=== PATIENT | female | born 1950 | race Caucasian/White ===

== ENCOUNTER 2016-10-13 12:54 | Emergency (ER) | payer MEDICARE, OTHER ==
--- NOTE | ~2016-10-13 | EKG ---
PATIENT: SUN DAVENPORT UNIT #: [id number] Ventricular Rate: 63 BPM Atrial Rate: 63 BPM P-R Interval: 166 ms QRS Duration: 68 ms Q-T Interval: 394 ms QTC Calculation(Bezet): 403 ms P [place]: 78 degrees Calculated R [place]: 77 degrees Calculated T [place]: 74 degrees Diagnosis Line: Normal sinus rhythm Diagnosis Line: Normal ECG Diagnosis Line: No previous ECGs available Diagnosis Line: Confirmed by HÉCTOR MIDDLETON MD ([id number]) on Diagnosis Line: 10/13/2016 3:51:38 PM INTERPRETING MD: KANE TIAN
[~2016-10-13 12:54] MED LIST: ACETAMINOPHEN PO; ACETAMINOPHEN PR; ATIVAN0.5 MG PO; CALCIUM 500 + D1 TAB PO; CALCIUM 500 +1 EAC2 PO; FEMORA; FOSAMAX PO; KEFLEX PO; LETROZOLE2.5 M1 PO; LETROZOLE2.5 MG PO; NEXIUM PO; PERCOCET7.5 PO; PROLIA60 MG/1 ML SQ; SEROQUEL50 M1 PO; VICODIN 5/1 TAB 5/50 PO; VITAMIN D
[2016-10-13 13:42] LABS: BASOPHIL% 0.4 % (0-2.5); EOSINOPHIL% 0.6 % (0.0-7.0); HEMATOCRIT 38.4 % (35.0-45.0); HEMOGLOBIN 12.7 gm/dL (12.0-16.0); LYMPHOCYTE# 2.1 X10e3 (1.0-3.5); LYMPHOCYTE% 29.1 % (17.0-45.0); MEAN CELL VOLUME 93.8 FL (83-96); MEAN PLATELET VOLUME 7.8 FL (6.5-11.5); MONOCYTE# 0.4 X10e3 (0-1.0); MONOCYTE% 6.3 % (3.0-12.0); NEUTROPHIL# 4.5 X10e3 (1.5-7.1); NEUTROPHIL% 63.6 % (40-75); PLATELET COUNT 296 X10e3 (140-420); RED BLOOD COUNT 4.09 X10e (3.90-5.30); RED CELL DISTRIBUTION WIDTH 13.9 % (11.0-15.5); WHITE BLOOD COUNT 7.1 X10e3 (4.0-10.5)
[2016-10-13 13:45] LABS: DIFF IND NO
[2016-10-13 13:58] LABS: ALBUMIN SERUM 3.7 g/dL (3.5-5.0); BILIRUBIN, DIRECT 0.1 mg/dL (0.0-0.2); BILIRUBIN,INDIRECT 0.3 mg/dL (0.0-0.9); BILIRUBIN,TOTAL 0.4 mg/dL (0.2-2.0); BUN/CREATININE RATIO 24.28; CALCIUM SERUM 9.9 mg/dL (8.4-10.2); CREATININE SERUM 0.7 mg/dL (0.6-1.4); GLOM FILT RATE Estimated 90.9 mL/min (>60); POTASSIUM 3.7 mmol/L (3.5-5.1); PROTEIN TOTAL SERUM 7.7 g/dL (6.0-8.3)
[2016-10-13 14:41] LABS: URINE SOURCE CLEAN CATCH
[2016-10-13 14:48] LABS: URINE APPEARANCE CLEAR; URINE BILIRUBIN NEG (NEG); URINE BLOOD 1+ (NEG); URINE COLOR YELLOW; URINE GLUCOSE NEG (NEG); URINE KETONE NEG (NEG); URINE LEUKOCYTE ESTERASE 1+ (NEG); URINE NITRATE NEG (NEG); URINE PH 6.5 (5-8); URINE PROTEIN NEG (NEG); URINE UROBILINOGEN 0.2 MG/DL (NEG)
[2016-10-13 14:53] LABS: CULTURE INDICATED? YES; URBCS1 AUWI 0-2 /[HPF] (0-2); URINE BACTERIA AUWI NEG (NEGATIVE); URINE SQUAMOUS EPITHELIAL CELL OCC /[HPF]
[2016-10-13 15:03] LABS: POC - CKMB <1.0 ng/mL (0.0-7.9); POC - TROPONIN <0.05 ng/mL (<=0.05)
[2016-10-13 15:22] LABS: POC - CKMB <1.0 ng/mL (0.0-7.9); POC - TROPONIN <0.05 ng/mL (<=0.05)
[2016-12-03] MEDS ORDERED: RISPERDAL M-TAB1 MG PO (14:58)
[2016-12-04] MEDS ORDERED: PRILOSEC PO (07:42)
[2017-01-12] MEDS ORDERED: NO MEDICATIONS (15:16)
[2017-01-19] MEDS ORDERED: VICODIN 5-3001 EACH PO (10:12)
[2017-01-19] MEDS ORDERED: NITROFURANTOIN100 M3 PO (10:12)
[2017-01-19] MEDS ORDERED: RISPERIDONE1 MG PO (10:13)
[2017-01-19] MEDS ORDERED: BENTYL10 MG PO (10:35)
== END 2016-10-13 16:18 | disposition home or self-care (01) ==
LOC: CED 12:54
DX: R53.1 Weakness (principal); R53.83 Other fatigue; F17.200 Nicotine dependence, unspecified, uncomplicated
CPT/HCPCS: 36415; 80048; 80076; 81003; 82553; 84484; 85025; 87086; 93005; 99283

== ENCOUNTER → 2016-10-30 | Outpatient (CLI) | payer MEDICARE, OTHER ==
[~2016-10-30] MED LIST changes: +BENTYL10 MG PO; +NICOTINE1 EAC2 TOP; +NITROFURANTOIN100 M3 PO; +NO MEDICATIONS; +NON-ASPIRIN PA325 M1 PO; +PRILOSEC PO; +PROTONIX PO; +RISPERDAL M-TAB1 MG PO; +RISPERIDONE1 MG PO; +VICODIN 5-3001 EACH PO
--- NOTE | ~2016-10-30 | CT7 ---
[facility] A Service of [facility] RADIOLOGY TEXT RESULTS PATIENT: SUN DAVENPORT LOCATION: [facility] : 51 UNIT #: [id number] AGE: [address]: RENU SCHULZ APRN SEX: F ORDER DR: [id number] [facility] [address] [place], [place] [address] [id number] O MR#: [id number] Acc #: [id number] NAME: SUN DAVENPORT. : 1950 SEX: F STUDY DATE/TIME: 10/30/2016 12:57 UNIT: [facility] ROOM: STUDY DESCRIPTION: CT Abdomen Wo Cont Attending Physician: Renu Schulz Aprn Referring Physician: Renu Schulz Aprn Ordering Physician: Renu cShulz Aprn Primary Care Physician: Marya Villanueva M.D. MEDICAL IMAGING REPORT This report is preliminary unless electronic signature is present EXAM CT of the abdomen without contrast media HISTORY Epigastric and mid abdominal pain, nausea for 1 week. TECHNIQUE Axial imaging of the abdomen was performed without contrast media. This CT exam was performed with one or more of the following radiation dose reduction techniques: Automatic exposure control, adjustment of mA and/or kV according to patient size, and iterative reconstruction. FINDINGS Lung bases are unremarkable. The patient has had an external left breast prosthesis in place. Scans through the liver parenchyma are normal. Gallbladder is normal. Spleen, adrenal glands, and pancreas appear normal. There is a radiopaque tablet within the gastric fundus. The right and left kidney have a normal appearance. No dilated or thickened loops of bowel are seen. There is atherosclerotic calcifications present. Upper aspect of the pelvis appears unremarkable. CONCLUSION There are postop changes of prior left mastectomy. CT of the abdomen is, otherwise, normal. Dictated by... David Hinojosa M.D. THIS IS AN ELECTRONICALLY VERIFIED REPORT David Hinojosa M.D. at 11/02/2016 5:11 PM SADE/aniket [facility] A Service of [facility] RADIOLOGY TEXT RESULTS PATIENT: SUN DAVENPORT LOCATION: [place] : 51 UNIT #: [id number] AGE: [address]: RENU SCHULZ APRN SEX: F ORDER DR: TD: 10/30/2016 16:24 JOB #: [id number] MEDICAL IMAGING REPORT Page 1 of 1 COPY
== END | disposition home or self-care (01) ==
LOC: CCAT 12:30
DX: R10.13 Epigastric pain (principal); R63.4 Abnormal weight loss; R63.1 Polydipsia; Z90.12 Acquired absence of left breast and nipple
CPT/HCPCS: 74150

== ENCOUNTER 2016-11-02 14:15 | Observation (INO) | payer MEDICARE, OTHER ==
--- NOTE | ~2016-11-02 | US67 ---
[facility] A Service of [facility] & [facility] RADIOLOGY TEXT RESULTS PATIENT: SUN DAVENPORT LOCATION: [facility] 340-01 : 51 UNIT #: [id number] AGE: [address]: Genny Lr MD SEX: F ORDER DR: [id number] [facility] [address] [place], [place] [address] [id number] I MR#: [id number] Acc #: [id number] NAME: SUN DAVENPORT. : 1950 SEX: F STUDY DATE/TIME: 11/02/2016 17:45 UNIT: [address] ROOM: [facility] STUDY DESCRIPTION: US Gallbladder Attending Physician: Genny Lr M.D. Ordering Physician: Jimy Gonzales D.O. Primary Care Physician: Marta Banegas A.P.R.N. MEDICAL IMAGING REPORT This report is preliminary unless electronic signature is present EXAM Gallbladder sonogram HISTORY 66-year-old female with abdominal pain, epigastric and mid abdominal pain for [address], 10/30/2016 FINDINGS Real-time examination demonstrates the gallbladder to be free of stones or wall thickening. No intra or extrahepatic ductal dilatation is identified. Common bile duct measures 6.5 mm, upper limits of normal. The visualized right kidney, liver appear normal. Visualized pancreas unremarkable. No free fluid. IMPRESSION Normal gallbladder and right upper quadrant sonogram. Dictated by... Larry Kidd M.D. THIS IS AN ELECTRONICALLY VERIFIED REPORT Larry Kidd M.D. at 11/03/2016 3:09 PM ANGIE/aba TD: 11/03/2016 08:34 JOB #: [id number] MEDICAL IMAGING REPORT Page 1 of 1 COPY
--- NOTE | ~2016-11-02 | EKG ---
PATIENT: SUN DAVENPORT UNIT #: [id number] Ventricular Rate: 65 BPM Atrial Rate: 65 BPM P-R Interval: 148 ms QRS Duration: 68 ms Q-T Interval: 392 ms QTC Calculation(Bezet): 407 ms P [place]: 66 degrees Calculated R [place]: 55 degrees Calculated T [place]: 57 degrees Diagnosis Line: Normal sinus rhythm Diagnosis Line: Normal ECG Diagnosis Line: When compared with ECG of 13-OCT-2016 13:20, Diagnosis Line: No significant change was found Diagnosis Line: Confirmed by PRIMITIVO PALOMO MD ([id number]) on Diagnosis Line: 11/02/2016 10:23:18 PM INTERPRETING MD: LORETO
--- NOTE | ~2016-11-02 | A ---
[facility] DATE: 11/03/16 Patient: SUN DAVENPORT Physician: [email or web address] [address] Room/Bed: [address] [place] [address], Zip: [place] [address] Admit Date: 11/02/16 Date of : 52 Height: 5 2 Weight: 101 46 NUTRITIONAL ASSESSMENT: REASON: Low BMI Dx: 66 y/o female admitted for UTI, gastritis PMH: Breast cancer, smoker Anthropometrics: ht: 5'2" wt: 101# (46 kg), BMI 18 Labs: Lip 17 Meds: rocephin, protonix IV, nicotine transdermal, zofran, tylenol, lovenox I/O & Bowel function: 240/200. Last BM 11/02 Skin Integrity: scar- left breast Diet: Healthy heart Assessment: Chart reviewed, events noted. 66 y/o female admitted for UTI, gastritis. RD audit intern spoke to pt at bedside. Pt reports having a 1# weight loss over the last 3 days. Pt says she has a fine appetite, eating about 75% of her breakfast this morning, but she feels very nauseous after eating and has an upset stomach. RD audit intern offered to order supplements and pt agreed. RD audit intern encouraged adequate intake of meals and supplements to prevent unintentional weight loss. RD will continue to follow. Dx: Underweight r/t nausea and upset stomach AEB pt report, low BMI Intervention: 1. Ensure supplements BID + magic cup with dinner Monitoring, Evaluation and Goals: 1. Oral intake; tolerate/consume >50% of all meals and supplements 2. Weight; prevent unintentional weight loss, promote healthy weight gain/maintenance toward healthy BMI (19.0-25.0) 3. GI; promote regular GI function Recommendations: 1. Ensure strawberry BID + Magic Cup with dinner. 2. Encourage adequate PO intake as tolerated. [facility] DATE: 11/03/16 Patient: SUN DAVENPORT Physician: [email or web address] Address: [address] Room/Bed: [address] [place] [address], Zip: [place] [address] Admit Date: 11/02/16 Date of : [birth year] Height: 5 2 Weight: 101 46 3. Recommend GI consult. RD will f/u per protocol as pt is at mild/moderate nutritional risk. Respectfully, MIKE PATTON, international representative Gerri Arellano, DREW, LD [facility] cc: client file
--- NOTE | ~2016-11-02 | CR72 ---
[facility] A Service of [facility] & [facility] RADIOLOGY TEXT RESULTS PATIENT: SUN DAVENPORT LOCATION: [facility] 340-01 : 51 UNIT #: [id number] AGE: [address]: Genny Lr MD SEX: F ORDER DR: [id number] [facility] [address] [place], [place] [address] [id number] I MR#: [id number] Acc #: [id number] NAME: SUN DAVENPORT. : 1950 SEX: F STUDY DATE/TIME: 11/02/2016 17:18 UNIT: [address] ROOM: [facility] STUDY DESCRIPTION: CR Chest Single View Portable Attending Physician: Genny Lr M.D. Ordering Physician: Jimy Gonzales D.O. Primary Care Physician: Marta Banegas A.P.R.N. MEDICAL IMAGING REPORT This report is preliminary unless electronic signature is present EXAM Portable chest HISTORY Shortness of air, weakness, palpitations x1 month. COMPARISON 08/06/2016 FINDINGS Portable view of the chest demonstrates pulmonary hyperinflation and hyperlucency suggesting underlying emphysema. No acute airspace disease or consolidation. No effusions. Heart and mediastinum unremarkable except for minimal aortic atherosclerotic changes. Multiple old left-sided rib fractures appear well healed. The patient is status post left mastectomy with multiple surgical clips in the left axilla. Overall, no acute findings. Dictated by... Larry Kidd M.D. THIS IS AN ELECTRONICALLY VERIFIED REPORT Larry Kidd M.D. at 11/03/2016 3:09 PM ANGIE/aniket TD: 11/03/2016 08:26 JOB #: [id number] MEDICAL IMAGING REPORT Page 1 of 1 COPY
--- NOTE | ~2016-11-02 | HP ---
Unit #: [id number] #: [id number] Patient: SUN DAVENPORT [id number] [address] [address] [id number] I MR#: [id number] NAME: SUN DAVENPORT. ROOM: 340 Age: 66 Sex: F Admission Date: 11/02/2016 : 1950 Attending Physician: Rachelle Treviño M.D. Primary Care Physician: Marta Banegas A.P.R.N. HISTORY AND PHYSICAL CHIEF COMPLAINT Abdominal pain. HISTORY OF PRESENT ILLNESS The patient is a 66-year-old female with a history of breast cancer, status post left breast mastectomy, who presented to the emergency room complaining of generalized weakness. The patient stated that she has been feeling sick for the last one month and was complaining of upper epigastric abdominal pain for the last few days. The patient had a CT of the abdomen and pelvis that showed postop changes of prior left mastectomy. CT of the abdomen was otherwise normal. The patient was also found to have a UTI with 2+ leukocyte esterase, 10-25 urine WBCs, and 1+ urine bacteria, and the patient is being admitted for the above reasons. Denies any fever, chills, or chest pain. Positive for nausea and vomiting. Denies any flank pain. PAST SURGICAL HISTORY 1. Right toe surgery. 2. Right hand surgery. 3. Left breast mastectomy back in 2007. HOME MEDICATIONS Unavailable. SOCIAL HISTORY She smokes a pack of cigarettes daily. Denies alcohol or any illicit drug abuse. FAMILY HISTORY Reviewed and none. REVIEW OF SYSTEMS A 14-point review of systems was performed and only pertinent positive findings are described above. The remaining are negative. PHYSICAL EXAMINATION GENERAL: Patient is lying in bed not in acute distress. VITAL SIGNS: Temperature 97.6, pulse 87, respiratory rate 16, blood pressure 133/91, and saturating 100% on room air. HEENT: Head atraumatic, normocephalic. Pupils equal, round, and reactive to light and accommodation. Extraocular movements are intact. NECK: Supple. LUNGS: Decreased air entry. EXTREMITIES: No cyanosis, no clubbing. Unit #: [id number] #: [id number] Patient: SUN DAVENPORT NEUROLOGIC: Alert, awake, and oriented. No gross focal motor deficit. DIAGNOSTIC STUDIES LABORATORY: Urinalysis shows 2+ leukocyte esterase, 10-25 urine WBCs, and 1+ urine bacteria. INR is 1. Sodium 137, potassium 4.4, chloride 103, bicarb 26, glucose 106, BUN 13, creatinine 0.4, AST 13, ALT 11, and alkaline phosphatase 68. Lipase 17. WBC 5.8, hemoglobin 13.5, hematocrit 41.2, and platelets 231,000. IMAGING: CT of the abdomen and pelvis shows postop changes of prior left mastectomy. CT of the abdomen is otherwise normal. CARDIOLOGY: EKG shows normal sinus rhythm at a rate of 65 beats per minute. ASSESSMENT 1. Urinary tract infection. 2. Gastritis (1) . 3. History of breast cancer, status post mastectomy. PLAN Admit the patient to observation. Patient will receive IV antibiotic with Rocephin. Follow up urine culture. Patient will be on Protonix IV 40 mg daily. Repeat the labs again, and further recommendations will follow. Dictated by Mark Velázquez TD: 11/02/2016 20:25 JOB #: [id number] HISTORY AND PHYSICAL Page 1 of 1 X RACHELLE TREVIÑO MD X HISTORY AND PHYSICAL
--- NOTE | ~2016-11-02 | DS ---
Unit #: [id number] #: [id number] Patient: SUN DAVENPORT [id number] [place] [address] [id number] I MR#: [id number] NAME: SUN DAVENPORT. ROOM: 340 Age: 66 Sex: F Admission Date: 11/02/2016 : 1950 Discharge Date: Attending Physician: Genny Lr M.D. Primary Care Physician: Ajay Edwards.P.R.N. DISCHARGE SUMMARY DISCHARGE DIAGNOSES 1. Abdominal pain, likely secondary to urinary tract infection and cystitis. 2. Gastritis with acid reflux. 3. History of breast cancer, status post mastectomy. CONSULTATION None. PROCEDURE None. DIAGNOSTIC STUDIES LABORATORY: BMP normal. WBC normal. Urinalysis shows bacteria 1+, WBC 10-25, leukocyte esterase 2+. IMAGING: Ultrasound of the abdomen: Gallbladder negative. Chest x-ray shows old left-sided fractures and emphysema. No new disease. CT of the abdomen and pelvis shows postoperative left mastectomy, otherwise normal. ALLERGIES None. DISCHARGE MEDICATIONS 1. Tylenol 650 q.6 p.r.n. pain. 2. Nicotine 21 mg transdermal daily over the counter. 3. Protonix 40 daily. 4. Nitrofurantoin 100 p.o. b.i.d. HOSPITALIZATION COURSE A 66 year old admitted because of abdominal pain. Abdominal pain likely from urinary tract infection and acute cystitis. Also, could be from acid reflux and gastritis. Patient was given Rocephin. Cultures are pending. I am going to give her nitrofurantoin. Follow with PCP for urinary tract infection and final culture reports. Acid reflux with likely gastritis: Protonix has been given. Follow with PCP in followup. DISPOSITION Discharge home. Unit #: [id number] #: [id number] Patient: SUN DAVENPORT FOLLOWUP Follow with family physician for UTI and gastritis. Dictated by... Mark Dai TD: 11/03/2016 13:24 JOB #: [id number] DISCHARGE SUMMARY Page 1 of 1 X Genny Lr MD DISCHARGE SUMMARY
[~2016-11-02 14:15] MED LIST changes: -BENTYL10 MG PO; -NICOTINE1 EAC2 TOP; -NITROFURANTOIN100 M3 PO; -NO MEDICATIONS; -NON-ASPIRIN PA325 M1 PO; -PRILOSEC PO; -PROTONIX PO; -RISPERDAL M-TAB1 MG PO; -RISPERIDONE1 MG PO; -VICODIN 5-3001 EACH PO
[2016-11-02 16:05] LABS: BASOPHIL% 0.6 % (0-2.5); EOSINOPHIL% 0.8 % (0.0-7.0); HEMATOCRIT 41.2 % (35.0-45.0); HEMOGLOBIN 13.5 gm/dL (12.0-16.0); LYMPHOCYTE# 1.9 X10e3 (1.0-3.5); LYMPHOCYTE% 33.3 % (17.0-45.0); MEAN CELL VOLUME 94.4 FL (83-96); MEAN CORPUSCULAR HGB CONC 32.8 g/dL (30-36); MONOCYTE# 0.5 X10e3 (0-1.0); MONOCYTE% 7.8 % (3.0-12.0); NEUTROPHIL# 3.4 X10e3 (1.5-7.1); NEUTROPHIL% 57.5 % (40-75); PLATELET COUNT 231 X10e3 (140-420); RED BLOOD COUNT 4.36 X10e (3.90-5.30); RED CELL DISTRIBUTION WIDTH 14.9 % (11.0-15.5); WHITE BLOOD COUNT 5.8 X10e3 (4.0-10.5)
[2016-11-02 16:12] LABS: DIFF IND NO
[2016-11-02 16:17] LABS: PARTIAL THROMBOPLASTIN TIME 23.8 SECONDS (23.5-31.3); PROTHROMBIN TIME (PATIENT) 11.3 SECONDS (10.0-11.7)
[2016-11-02 16:25] LABS: ALBUMIN SERUM 3.9 g/dL (3.5-5.0); ALKALINE PHOSPHATASE 68 U/L (32-92); ALT (SGPT) 11 U/L (10-40); AST (SGOT) 13 U/L (10-42); BILIRUBIN,TOTAL 0.2 mg/dL (0.2-2.0); BLOOD UREA NITROGEN 13 mg/dL (9-23); CALCIUM SERUM 9.6 mg/dL (8.4-10.2); CARBON DIOXIDE 26 mmol/L (22-31); CHLORIDE 103 mmol/L (100-111); CREATININE SERUM 0.4 mg/dL (0.6-1.4); GLOM FILT RATE Estimated 109.3 mL/min (>60); GLUCOSE FASTING 106 mg/dL (70-110); LIPASE 17 U/L (22-51); POTASSIUM 4.4 mmol/L (3.5-5.1); PROTEIN TOTAL SERUM 7.5 g/dL (6.0-8.3); SODIUM 137 mmol/L (135-145)
[2016-11-02 16:26] LABS: BILIRUBIN, DIRECT <0.1 mg/dL (0.0-0.2); BILIRUBIN,INDIRECT 0.1 mg/dL (0.0-0.9)
[2016-11-02 17:01] LABS: URINE SOURCE CLEAN CATCH
[2016-11-02 17:06] LABS: URINE APPEARANCE CLEAR; URINE BILIRUBIN NEG (NEG); URINE BLOOD 1+ (NEG); URINE COLOR YELLOW; URINE GLUCOSE NEG (NEG); URINE KETONE TRACE (NEG); URINE LEUKOCYTE ESTERASE 2+ (NEG); URINE NITRATE NEG (NEG); URINE PROTEIN NEG (NEG); URINE SPECIFIC GRAVITY 1.017 (1.003-1.035); URINE UROBILINOGEN 0.2 MG/DL (NEG)
[2016-11-02 17:08] LABS: CULTURE INDICATED? YES; URINE BACTERIA AUWI 1+ (NEGATIVE); URINE SQUAMOUS EPITHELIAL CELL OCC /[HPF]
[2016-11-02] MEDS ORDERED: NO MEDICATIONS (20:52)
[2016-11-03 05:38] LABS: BASOPHIL% 0.9 % (0-2.5); EOSINOPHIL# 0.1 X10e3 (0-0.7); EOSINOPHIL% 1.2 % (0.0-7.0); HEMATOCRIT 37.8 % (35.0-45.0); HEMOGLOBIN 12.5 gm/dL (12.0-16.0); LYMPHOCYTE# 2.1 X10e3 (1.0-3.5); LYMPHOCYTE% 38.5 % (17.0-45.0); MEAN CELL VOLUME 93.3 FL (83-96); MEAN CORPUSCULAR HEMOGLOBIN 30.9 PG (28-34); MEAN CORPUSCULAR HGB CONC 33.1 g/dL (30-36); MEAN PLATELET VOLUME 8.2 FL (6.5-11.5); MONOCYTE# 0.5 X10e3 (0-1.0); MONOCYTE% 9.5 % (3.0-12.0); NEUTROPHIL# 2.8 X10e3 (1.5-7.1); NEUTROPHIL% 49.9 % (40-75); PLATELET COUNT 206 X10e3 (140-420); RED BLOOD COUNT 4.05 X10e (3.90-5.30); RED CELL DISTRIBUTION WIDTH 15.2 % (11.0-15.5); WHITE BLOOD COUNT 5.6 X10e3 (4.0-10.5)
[2016-11-03 05:43] LABS: DIFF IND NO
[2016-11-03 06:57] LABS: BUN/CREATININE RATIO 18.33; CALCIUM SERUM 8.7 mg/dL (8.4-10.2); CREATININE SERUM 0.6 mg/dL (0.6-1.4); GLOM FILT RATE Estimated 95.7 mL/min (>60); POTASSIUM 3.9 mmol/L (3.5-5.1)
[2016-11-03] MEDS ORDERED: NON-ASPIRIN PA325 M1 PO (13:31)
[2016-11-03] MEDS ORDERED: PROTONIX PO (13:32)
[2016-11-03] MEDS ORDERED: NICOTINE1 EAC2 TOP (13:32)
[2016-11-03] MEDS ORDERED: NITROFURANTOIN100 M3 PO (13:33)
[2016-12-03] MEDS ORDERED: RISPERDAL M-TAB1 MG PO (14:58)
[2016-12-04] MEDS ORDERED: PRILOSEC PO (07:42)
[2017-01-12] MEDS ORDERED: NO MEDICATIONS (15:16)
[2017-01-19] MEDS ORDERED: NITROFURANTOIN100 M3 PO (10:12)
[2017-01-19] MEDS ORDERED: VICODIN 5-3001 EACH PO (10:12)
[2017-01-19] MEDS ORDERED: RISPERIDONE1 MG PO (10:13)
[2017-01-19] MEDS ORDERED: BENTYL10 MG PO (10:35)
== END 2016-11-03 14:40 | disposition home or self-care (01) ==
LOC: CED 14:15 → CEDOF 18:35 → CED 19:10 → C3A PCU 20:01 → CEDOF 20:01 → C3A PCU 11-03 06:40
PROVIDERS: Internal Medicine; Student in an Organized Health Care Education/Training Program
DX: R10.9 Unspecified abdominal pain (principal); N39.0 Urinary tract infection, site not specified; K21.9 Gastro-esophageal reflux disease without esophagitis; Z85.3 Personal history of malignant neoplasm of breast; Z90.12 Acquired absence of left breast and nipple; F17.210 Nicotine dependence, cigarettes, uncomplicated; J43.9 Emphysema, unspecified
CPT/HCPCS: 36415; 71010; 76705; 80048; 80076; 81003; 83690; 85025; 85610; 85730; 87086; 93005; 96361; 96365; 96372; 96375; 96376; 99285; C9113; G0378; J0696; J1650; J2405

== ENCOUNTER 2016-11-19 18:08 | Emergency (ER) | payer MEDICARE, OTHER ==
[~2016-11-19 18:08] MED LIST changes: +NICOTINE1 EAC2 TOP; +NITROFURANTOIN100 M3 PO; +NO MEDICATIONS; +NON-ASPIRIN PA325 M1 PO; +PROTONIX PO
[2016-12-03] MEDS ORDERED: RISPERDAL M-TAB1 MG PO (14:58)
[2016-12-04] MEDS ORDERED: PRILOSEC PO (07:42)
[2017-01-12] MEDS ORDERED: NO MEDICATIONS (15:16)
[2017-01-19] MEDS ORDERED: VICODIN 5-3001 EACH PO (10:12)
[2017-01-19] MEDS ORDERED: NITROFURANTOIN100 M3 PO (10:12)
[2017-01-19] MEDS ORDERED: RISPERIDONE1 MG PO (10:13)
[2017-01-19] MEDS ORDERED: BENTYL10 MG PO (10:35)
== END 2016-11-19 19:55 | disposition left against medical advice (07) ==
LOC: CED 18:08
DX: Z53.21 Procedure and treatment not carried out due to patient leaving prior to being seen by health care provider (principal)

== ENCOUNTER → 2016-12-01 | Outpatient (CLI) | payer MEDICARE, OTHER ==
[~2016-12-01] MED LIST changes: +BENTYL10 MG PO; +PRILOSEC PO; +RISPERDAL M-TAB1 MG PO; +RISPERIDONE1 MG PO; +VICODIN 5-3001 EACH PO
--- NOTE | ~2016-12-01 | NM22 ---
[facility] A Service of [facility] & [facility] RADIOLOGY TEXT RESULTS PATIENT: SUN DAVENPORT LOCATION: [facility] : 51 UNIT #: [id number] AGE: [address]: SHAHRIAR RODRIGUEZ APRN SEX: F ORDER DR: [id number] [facility] [address] [place], [place] [address] [id number] O MR#: [id number] Acc #: [id number] NAME: SUN DAVENPORT. : 1950 SEX: F STUDY DATE/TIME: 12/01/2016 9:47 UNIT: [facility] ROOM: STUDY DESCRIPTION: IRENA Hepatobiliary W GB Pharm Attending Physician: Shahriar Rodriguez Aprn Referring Physician: Shahriar Rodriguez Aprn Ordering Physician: Shahriar Rodriguez Aprn Primary Care Physician: Ajay Edwards.PLauraRNash MEDICAL IMAGING REPORT This report is preliminary unless electronic signature is present EXAM Hepatobiliary scan 12/01 INDICATIONS Epigastric abdominal pain with nausea and vomiting since October 01, 2016 but worsening. TECHNIQUE Imaging was obtained of the abdomen for 60 minutes after the IV administration of 4.5 mCi of Tc-99m Choletec. COMPARISON STUDIES Comparison is made with gallbladder ultrasound from 11/02/2016. FINDINGS There is prompt uptake by the liver. Biliary and small bowel activity are seen within 30 minutes. Gallbladder activity confirmed within 45 minutes. There is no evidence of acute cholecystitis or biliary obstruction. Following the IV administration of 0.9 mcg of Kinevac, gallbladder ejection fraction is abnormally low at only 1.6%. This is a nonspecific finding that can be seen in the setting of chronic cholecystitis. Correlate clinically. IMPRESSION 1. No evidence of acute cholecystitis or biliary obstruction. 2. Abnormally low gallbladder ejection fraction of only 1.6%. Dictated by... Jamie Barlow Jr., M.D. THIS IS AN ELECTRONICALLY VERIFIED REPORT Jamie Barlow Jr., M.D. at 12/02/2016 8:29 AM [facility] A Service of [facility] & [facility] RADIOLOGY TEXT RESULTS PATIENT: SUN DAVENPORT LOCATION: [facility] #: [id number] : 52 UNIT #: [id number] AGE: [address]: SHAHRIAR RODRIGUEZ APRN SEX: F ORDER DR: Randa TD: 12/01/2016 22:36 JOB #: [id number] MEDICAL IMAGING REPORT Page 1 of 1 COPY
== END | disposition home or self-care (01) ==
LOC: CNUC 09:05
DX: R10.13 Epigastric pain (principal); R11.2 Nausea with vomiting, unspecified; R94.5 Abnormal results of liver function studies
CPT/HCPCS: 78227; A9537; J2805

== ENCOUNTER → 2016-12-04 | Day surgery (SDC) | payer MEDICARE, OTHER ==
--- NOTE | ~2016-12-04 | OR ---
Unit #: [id number] #: [id number] Patient: SUN DAVENPORT [id number] [address] [place], [place] [address] [id number] O MR#: [id number] NAME: SUN DAVENPORT ROOM: Date of Procedure: 12/04/2016 Admission Date: 12/04/2016 Surgeon: Nathan Holland M.D. : 1950 Attending Physician: Nathan Holland M.D. Referring Physician: Nathan Holland M.D. Primary Care Physician: Generic Doctor Not In System OPERATIVE REPORT PREOPERATIVE DIAGNOSES The patient presents with a history of postprandial dyspepsia, early satiety, feeling of fullness in the upper abdomen after eating and symptoms suggestive of dysphagia. PROCEDURES PERFORMED Upper gastrointestinal endoscopy and biopsy. POSTOPERATIVE DIAGNOSES Completely normal examination up to third part of duodenum. A biopsy was obtained from the antrum for CLOtest. RECOMMENDATIONS The above examination was essentially normal. The patient will have an outpatient gastric emptying study in the next couple of weeks and thereafter will be followed up in the office. In the meantime, she is being started on empiric omeprazole 40 mg p.o. daily. SEDATION USED MAC. DESCRIPTION OF PROCEDURE Following detailed explanation of potential risks and complications of an upper endoscopy, namely perforation, bleeding, and complications related to the sedation, the patient was brought to GI lab and laid in the left lateral decubitus position. A lubricated tip of the Olympus video upper endoscope was passed through the bite block into the proximal esophagus under direct vision. The entire esophageal mucosa was examined and appeared normal. Z-line was nicely demarcated, there being no esophagitis or hiatus hernia. The scope was then advanced into the gastric cavity and the latter was insufflated. Mucosa of the fundus, body, and antrum examined and appeared unremarkable. Pylorus was intubated with visualization of the normal duodenal bulb and second and third part of the duodenum. Upon withdrawal and retroflexion, incisura, cardia, and greater curve were examined and no additional findings noted. A biopsy was obtained from the antrum for CLOtest. The scope was then withdrawn into the distal esophagus. The entire esophageal mucosa was examined all the way up to pharynx. No additional findings noted. The patient tolerated the procedure without any postprocedure complications. Dictated by... Unit #: [id number] #: [id number] Patient: SUN DAVENPORT TOÑO Mark Murdock TD: 12/04/2016 08:14 JOB #: [id number] OPERATIVE REPORT Page 1 of 1 X Nathan Holland MD PROCEDURE OPERATIVE NOTE
== END | disposition home or self-care (01) ==
LOC: COPS 06:09
DX: R10.13 Epigastric pain (principal); M81.0 Age-related osteoporosis without current pathological fracture; F17.210 Nicotine dependence, cigarettes, uncomplicated; Z85.3 Personal history of malignant neoplasm of breast; Z79.899 Other long term (current) drug therapy; Z90.12 Acquired absence of left breast and nipple; Z98.890 Other specified postprocedural states
CPT/HCPCS: 87077

== ENCOUNTER → 2016-12-23 | Outpatient (CLI) | payer MEDICARE, OTHER ==
--- NOTE | ~2016-12-23 | EKG ---
PATIENT: SUN DAVENPORT UNIT #: [id number] Ventricular Rate: 70 BPM Atrial Rate: 70 BPM P-R Interval: 126 ms QRS Duration: 66 ms Q-T Interval: 390 ms QTC Calculation(Bezet): 421 ms P [place]: 63 degrees Calculated R [place]: 64 degrees Calculated T [place]: 71 degrees Diagnosis Line: Normal sinus rhythm Diagnosis Line: Normal ECG Diagnosis Line: When compared with ECG of 02-NOV-2016 17:29, Diagnosis Line: No significant change was found Diagnosis Line: Confirmed by OANH BAEZ MD ([id number]) on 12/24/2016 Diagnosis Line: 7:07:14 PM INTERPRETING MD: SASHA TIAN
== END | disposition home or self-care (01) ==
LOC: CAMB 11:53
DX: Z01.810 Encounter for preprocedural cardiovascular examination (principal)
CPT/HCPCS: 93005

== ENCOUNTER → 2016-12-29 | Day surgery (SDC) | payer MEDICARE, OTHER ==
--- NOTE | ~2016-12-29 | OR ---
Unit #: [id number] #: [id number] Patient: SUN DAVENPORT [id number] [facility] [address] [place], [place] [address] [id number] O MR#: [id number] NAME: SUN DAVENPORT ROOM: Date of Procedure: 12/29/2016 Admission Date: 12/29/2016 Surgeon: Jamie Marrero M.D. : 1950 Attending Physician: Jamie Marrero M.D. Primary Care Physician: Generic Doctor Not In System OPERATIVE REPORT PREOPERATIVE DIAGNOSIS Chronic acalculous cholecystitis. POSTOPERATIVE DIAGNOSIS Chronic acalculous cholecystitis. PROCEDURE PERFORMED Laparoscopic cholecystectomy. ANESTHESIA General endotracheal anesthesia. ESTIMATED BLOOD LOSS 30 mL. INDICATIONS FOR PROCEDURE A 66-year-old female, who is having abdominal pain associated with nausea and vomiting. She underwent extensive evaluation to include CT scan, ultrasound, upper and lower endoscopy, and a HIDA scan. HIDA scan showed an ejection fraction of 1.6% with concordant symptoms. DESCRIPTION OF PROCEDURE The patient was admitted to [facility], positively identified, and transported to the operating room, and after induction of general endotracheal anesthesia, she was prepped and draped in usual sterile fashion. The patient is very short waisted and so midway below the umbilicus and the pubis. A 5 mm transverse incision made. A Veress needle was placed and pneumoperitoneum was created. A 5-mm trocar was placed and the laparoscope was introduced into peritoneal cavity. Under direct vision, the epigastric port was placed along the right lateral abdominal wall. There were multiple omental adhesions that had to be taken down by sharp and cautery dissection. This freed up the right lateral abdominal cavity, so that the lateral trocars could be placed. Gallbladder was then grasped and elevated. Adhesions were taken down by sharp and blunt dissection, identifying the infundibulum which was retracted laterally. [place] was then dissected out clearly identifying the cystic duct, gallbladder, and cystic duct-common duct junction along with the posteriorly placed cystic artery. The cystic artery was bifurcated and both limbs were doubly clipped proximally and distally and divided. A single clip placed on the cystic duct as it entered the gallbladder and then 3 clips were placed distally and the cystic duct was sharply divided. The gallbladder was dissected out of the Unit #: [id number] #: [id number] Patient: SUN DAVENPORT liver bed using cautery dissection. Once it was freed up from its hepatic attachments, it was brought out through the epigastric port. There was no spillage of bile or stones. We checked and there was good hemostasis. The epigastric fascial defect was closed with the neoClose device and the closure was airtight. I then reduced the pneumoperitoneum as I removed laparoscope and trocars. 0.5% Marcaine with epinephrine was infiltrated into each trocar site. The skin was closed with 4-0 Monocryl subcuticular closure and Dermabond skin adhesive. Sponges and needle counts were correct x3. The patient tolerated the procedure well and transported to recovery in stable condition. Postoperative instructions were discussed with the patient and her prior to surgery. I will discuss the findings and postoperative instructions with the patient's once he can be found, he did not go to the waiting area, so we have a call out to him at this time. Dictated by... Mark Bolton/dayana TD: 12/29/2016 14:04 JOB #: [id number] OPERATIVE REPORT Page 1 of 1 X Jamie Marrero MD PROCEDURE OPERATIVE NOTE
[2016-12-29 09:58] LABS: URINE SOURCE CLEAN CATCH
[2016-12-29 10:09] LABS: CULTURE INDICATED? YES; U HYALINE CASTS AUWI 0-2 /[LPF]; URINE BACTERIA AUWI 1+ (NEGATIVE); URINE SQUAMOUS EPITHELIAL CELL OCC /[HPF]
[2016-12-29 10:14] LABS: URINE APPEARANCE CLEAR; URINE BILIRUBIN NEG (NEG); URINE BLOOD 1+ (NEG); URINE COLOR YELLOW; URINE GLUCOSE NEG (NEG); URINE KETONE NEG (NEG); URINE LEUKOCYTE ESTERASE 1+ (NEG); URINE NITRATE NEG (NEG); URINE PROTEIN NEG (NEG); URINE SPECIFIC GRAVITY 1.021 (1.003-1.035); URINE UROBILINOGEN 0.2 MG/DL (NEG)
== END | disposition home or self-care (01) ==
LOC: CSUR 08:53
PROVIDERS: Specialist
DX: K81.1 Chronic cholecystitis (principal); F17.210 Nicotine dependence, cigarettes, uncomplicated; M81.0 Age-related osteoporosis without current pathological fracture; F41.8 Other specified anxiety disorders; G25.81 Restless legs syndrome; Z85.3 Personal history of malignant neoplasm of breast; Z98.890 Other specified postprocedural states; Z90.12 Acquired absence of left breast and nipple; Z79.899 Other long term (current) drug therapy
CPT/HCPCS: 81003; 87086; 88304; J0330; J0690; J1885; J2250; J2405; J2710; J3010

== ENCOUNTER 2017-01-14 11:50 | Emergency (ER) | payer OTHER, MEDICARE ==
[~2017-01-14] VITALS: Ht 157.5 cm; Wt 44.0 kg
--- NOTE | ~2017-01-14 | EKG ---
PATIENT: SUN DAVENPORT UNIT #: [id number] Ventricular Rate: 75 BPM Atrial Rate: 75 BPM P-R Interval: 148 ms QRS Duration: 70 ms Q-T Interval: 380 ms QTC Calculation(Bezet): 424 ms P [place]: 63 degrees Calculated R [place]: 62 degrees Calculated T [place]: 72 degrees Diagnosis Line: Normal sinus rhythm Diagnosis Line: Normal ECG Diagnosis Line: When compared with ECG of 23-DEC-2016 12:17, Diagnosis Line: No significant change was found Diagnosis Line: Confirmed by PRIMITIVO PALOMO MD ([id number]) on Diagnosis Line: 01/15/2017 4:41:40 PM INTERPRETING MD: LORETO
--- NOTE | ~2017-01-14 | CR72 ---
[facility] A Service of [facility] RADIOLOGY TEXT RESULTS PATIENT: SUN DAVENPORT LOCATION: ALIZA : [birth year] UNIT #: [id number] AGE: [address]: Mykel Morse MD SEX: F ORDER DR: [id number] [facility] [address] [place], [place] [address] [id number] E MR#: [id number] Acc #: [id number] NAME: SUN DAVENPORT : 1950 SEX: F STUDY DATE/TIME: 01/14/2017 12:28 UNIT: ALIZA ROOM: STUDY DESCRIPTION: CR Chest Single View Portable Attending Physician: Mykel Morse M.D. Ordering Physician: Mykel Morse M.D. Primary Care Physician: Primary Care Physician No MEDICAL IMAGING REPORT This report is preliminary unless electronic signature is present EXAM Chest portable 01/14/2017 1228 hours HISTORY 66-year-old woman with history of breast carcinoma with left mastectomy, 2007. Patient presents today after syncopal episode today with weakness. COMPARISON 11/02/2016. FINDINGS Upright portable chest demonstrates normal cardiac, mediastinal and hilar contours. Lungs are hyperinflated but clear of acute density. There is no pleural effusion or pneumothorax. There are surgical clips in the left axilla. There is an old healed left eighth rib fracture unchanged. IMPRESSION Pulmonary hyperinflation with no acute cardiopulmonary findings. There is an old healed left posterior eighth rib fracture unchanged. No acute fracture, pleural effusion or pneumothorax. Dictated by... Janae Meyer M.D. THIS IS AN ELECTRONICALLY VERIFIED REPORT Janae Meyer M.D. at 01/14/2017 2:29 PM MANJINDER/benita TD: 01/14/2017 14:06 JOB #: [id number] MEDICAL IMAGING REPORT [facility] A Service of [facility] RADIOLOGY TEXT RESULTS PATIENT: SUN DAVENPORT LOCATION: ALIZA : 51 UNIT #: [id number] AGE: [address]: Mykel Morse MD SEX: F ORDER DR: Page 1 of 1 COPY
[~2017-01-14 11:50] MED LIST changes: -BENTYL10 MG PO; -RISPERIDONE1 MG PO; -VICODIN 5-3001 EACH PO
[2017-01-14 12:44] LABS: BASOPHIL% 0.6 % (0-2.5); EOSINOPHIL# 0.1 X10e3 (0-0.7); EOSINOPHIL% 1.2 % (0.0-7.0); HEMATOCRIT 45.1 % (35.0-45.0); HEMOGLOBIN 15.2 gm/dL (12.0-16.0); LYMPHOCYTE# 2.3 X10e3 (1.0-3.5); LYMPHOCYTE% 26.5 % (17.0-45.0); MEAN CELL VOLUME 94.4 FL (83-96); MEAN CORPUSCULAR HEMOGLOBIN 31.9 PG (28-34); MEAN CORPUSCULAR HGB CONC 33.8 g/dL (30-36); MEAN PLATELET VOLUME 8.5 FL (6.5-11.5); MONOCYTE# 0.5 X10e3 (0-1.0); MONOCYTE% 5.7 % (3.0-12.0); NEUTROPHIL# 5.6 X10e3 (1.5-7.1); PLATELET COUNT 318 X10e3 (140-420); RED BLOOD COUNT 4.78 X10e (3.90-5.30); RED CELL DISTRIBUTION WIDTH 14.8 % (11.0-15.5); WHITE BLOOD COUNT 8.5 X10e3 (4.0-10.5)
[2017-01-14 12:45] LABS: DIFF IND NO
[2017-01-14 13:10] LABS: ALBUMIN SERUM 4.5 g/dL (3.5-5.0); BILIRUBIN, DIRECT 0.1 mg/dL (0.0-0.2); BILIRUBIN,TOTAL 1.1 mg/dL (0.2-2.0); CALCIUM SERUM 9.6 mg/dL (8.4-10.2); CREATININE SERUM 0.8 mg/dL (0.6-1.4); GLOM FILT RATE Estimated 77.4 mL/min (>60); POTASSIUM 3.6 mmol/L (3.5-5.1); PROTEIN TOTAL SERUM 8.2 g/dL (6.0-8.3)
[2017-01-14 14:36] LABS: URINE SOURCE CLEAN CATCH
[2017-01-14 14:47] LABS: URINE APPEARANCE CLOUDY; URINE BILIRUBIN NEG (NEG); URINE BLOOD 1+ (NEG); URINE COLOR DK YELLOW; URINE GLUCOSE NEG (NEG); URINE KETONE 3+ (NEG); URINE LEUKOCYTE ESTERASE TRACE (NEG); URINE NITRATE NEG (NEG); URINE PH 5.5 (5-8); URINE PROTEIN 1+ (NEG); URINE SPECIFIC GRAVITY 1.028 (1.003-1.035)
[2017-01-14 14:51] LABS: CULTURE INDICATED? YES; URINE BACTERIA AUWI 3+ (NEGATIVE); URINE SQUAMOUS EPITHELIAL CELL MANY /[HPF]
[2017-01-14 14:55] LABS: INR 1.1; PARTIAL THROMBOPLASTIN TIME 22.9 SECONDS (23.5-31.3); PROTHROMBIN TIME (PATIENT) 11.5 SECONDS (10.0-11.7)
[2017-01-19] MEDS ORDERED: NITROFURANTOIN100 M3 PO (10:12)
[2017-01-19] MEDS ORDERED: VICODIN 5-3001 EACH PO (10:12)
[2017-01-19] MEDS ORDERED: RISPERIDONE1 MG PO (10:13)
[2017-01-19] MEDS ORDERED: BENTYL10 MG PO (10:35)
== END 2017-01-14 15:50 | disposition home or self-care (01) ==
LOC: CED 11:50
PROVIDERS: Emergency Medicine
DX: R55 Syncope and collapse (principal); N39.0 Urinary tract infection, site not specified; F17.210 Nicotine dependence, cigarettes, uncomplicated; Z85.3 Personal history of malignant neoplasm of breast
CPT/HCPCS: 36415; 71010; 80048; 80076; 81003; 82947; 85025; 85610; 85730; 87086; 93005; 96361; 96365; 99284; J0696

== ENCOUNTER → 2017-01-19 | Day surgery (SDC) | payer MEDICARE, OTHER ==
[~2017-01-19] MED LIST changes: +BENTYL10 MG PO; +RISPERIDONE1 MG PO; +VICODIN 5-3001 EACH PO
--- NOTE | ~2017-01-19 | OR ---
Unit #: [id number] #: [id number] Patient: SUN DAVENPORT [id number] [facility] [address] [place], [place] [address] [id number] O MR#: [id number] NAME: SUN DAVENPORT ROOM: Date of Procedure: 01/19/2017 Admission Date: 01/19/2017 Surgeon: Jamie Marrero M.D. : 1950 Attending Physician: Jamie Marrero M.D. Referring Physician: Jamie Marrero M.D. Primary Care Physician: Primary Care Physician No OPERATIVE REPORT PREOPERATIVE DIAGNOSES Chronic, unremitting abdominal pain, and intermittent rectal bleeding. POSTOPERATIVE DIAGNOSIS An 8 mm ascending colon polyp. PROCEDURE PERFORMED Colonoscopy to cecum with intubation of the terminal ilium and snare polypectomy of ascending colon polyp x1. ANESTHESIA Monitored anesthesia. INDICATIONS FOR PROCEDURE Ms. Davenport is a 66-year-old female, who has been complaining of unremitting abdominal pain, and just feeling bad for months. She has had an extensive evaluation by multiple physicians. The only abnormality on x-ray or lab results has been a HIDA scan with an ejection fraction of 1.6%. Even after cholecystectomy, she says her pain has not resolved. At the time of laparoscopic cholecystectomy, diagnostic laparoscopy was otherwise unremarkable. The patient and her in the office states that she has had some rectal bleeding and years past, she was told she had some mild internal hemorrhoids. I could not appreciate any hemorrhoidal disease on physical examination. DESCRIPTION OF PROCEDURE The patient was admitted to [facility], positively identified, and transported to the endoscopy suite where after appropriate monitoring and positioning, she was sedated by the nurse environmental health safety manager. On rectal examination, there was no local anorectal pathology. Digital exam was normal. Colonoscope was passed through the anal verge. We insufflated the colon and rectum. I retroflexed the scope and evaluated the anal verge and there was no internal hemorrhoidal disease. I then put the scope back in the antegrade position, passed the scope throughout the extent of the colon to the cecum where the appendiceal orifice and ileocecal valve were photo-documented. I was able to intubate the terminal ilium and the terminal ileal mucosa appears normal, which does not completely exclude, but is highly doubtful that she has Crohn disease given all the other evaluation she has had. As I came back in a retrograde fashion, in the proximal ascending colon above the ileocecal valve, she had a sessile 8 mm polyp. This was completely excised by snare polypectomy, recovered and sent to laboratory. On careful antegrade and Unit #: [id number] #: [id number] Patient: SUN DAVENPORT retrograde visualization, no other abnormalities were noted throughout the colon and rectum. The patient tolerated the procedure well and was transported to recovery in stable condition. We will call the patient with the results of the pathological evaluation of the polyps. Recommend followup at that time. In the interim, although her lab studies have been essentially normal on most recent evaluation, I plan on repeating her labs as a followup. In this time, I will include a thyroid stimulating hormone and a parathormone level to ensure that this may not be contributing to her depression and anxiety. In review of her psychiatric records from [facility], she has a long history of depression, paranoia, anxiety and obsessive thoughts. She has even had some psychotic features in the past. The patient has been noncompliant with taking her psychiatric medications. Both in the office and again today, I have discussed with her I think it is important for her to get repeat psychiatric evaluation as all of her x-rays and labs have been essentially normal except for her gallbladder ejection fraction. Even with removal of her gallbladder, she has not had any improvement in her symptoms. Today, scope was essentially normal. We did find one incidental polyp, but it was not causing any symptoms. Dictated by... Mark Bolton/dayana TD: 01/20/2017 07:24 JOB #: [id number] OPERATIVE REPORT Page 1 of 1 X Jamie Marrero MD PROCEDURE OPERATIVE NOTE
[2017-01-19 13:16] LABS: BASOPHIL% 0.7 % (0-2.5); EOSINOPHIL% 0.5 % (0.0-7.0); HEMATOCRIT 40.1 % (35.0-45.0); HEMOGLOBIN 13.3 gm/dL (12.0-16.0); LYMPHOCYTE# 1.5 X10e3 (1.0-3.5); MEAN CELL VOLUME 95.2 FL (83-96); MEAN CORPUSCULAR HEMOGLOBIN 31.7 PG (28-34); MEAN CORPUSCULAR HGB CONC 33.3 g/dL (30-36); MONOCYTE# 0.4 X10e3 (0-1.0); MONOCYTE% 5.7 % (3.0-12.0); NEUTROPHIL% 72.1 % (40-75); PLATELET COUNT 239 X10e3 (140-420); RED BLOOD COUNT 4.21 X10e (3.90-5.30); RED CELL DISTRIBUTION WIDTH 14.8 % (11.0-15.5)
[2017-01-19 13:17] LABS: DIFF IND NO
[2017-01-19 13:47] LABS: ALBUMIN SERUM 3.7 g/dL (3.5-5.0); BILIRUBIN,TOTAL 0.3 mg/dL (0.2-2.0); BUN/CREATININE RATIO 18.57; CALCIUM SERUM 8.9 mg/dL (8.4-10.2); CREATININE SERUM 0.7 mg/dL (0.6-1.4); GLOM FILT RATE Estimated 90.9 mL/min (>60); MAGNESIUM 1.9 mg/dL (1.6-3.0); PHOSPHOROUS 3.8 mg/dL (2.5-4.6); POTASSIUM 4.1 mmol/L (3.5-5.1); PROTEIN TOTAL SERUM 6.7 g/dL (6.0-8.3)
== END | disposition home or self-care (01) ==
LOC: COPS 10:39
PROVIDERS: Specialist
DX: D12.2 Benign neoplasm of ascending colon (principal); M81.0 Age-related osteoporosis without current pathological fracture; F32.9 Major depressive disorder, single episode, unspecified; F17.210 Nicotine dependence, cigarettes, uncomplicated; Z90.49 Acquired absence of other specified parts of digestive tract; Z90.12 Acquired absence of left breast and nipple; Z98.890 Other specified postprocedural states
CPT/HCPCS: 80053; 83735; 84100; 84443; 85025; 86000; 88305